=== PATIENT | female | born 1945 | race Caucasian/White ===

== ENCOUNTER 2023-03-10 22:07 | Inpatient (IN) | payer MEDICARE, BC ==
[2023-03-11 01:13] LABS: BASOPHILS ABSOLUTE AUTO 0.05 K/uL (0.00-0.10); BASOPHILS PERCENT AUTO 0.4 % (0.1-1.3); EOSINOPHILS ABSOLUTE AUTO 0.05 K/uL (0.00-0.40); EOSINOPHILS PERCENT AUTO 0.4 % (0.0-5.4); HEMATOCRIT 34.3 % (34.3-46.0); HEMOGLOBIN 11.3 g/dL (11.2-15.5); IMMATURE GRAN ABSOLUTE AUTO 0.12 K/uL (0.00-0.23); IMMATURE GRAN PERCENT AUTO 0.9 % (0.0-0.7); LYMPHOCYTES ABSOLUTE AUTO 1.22 K/uL (0.8-3.3); LYMPHOCYTES PERCENT AUTO 8.7 % (11.4-47.7); MEAN CORPUSCULAR HGB CONC 32.9 g/dL (31.6-35.5); MEAN CORPUSCULAR VOLUME 88.2 fL (81.4-99.0); MONOCYTES PERCENT AUTO 10.7 % (3.3-12.6); NEUTROPHILS ABSOLUTE AUTO 11.11 K/uL (1.0-7.6); NEUTROPHILS PERCENT AUTO 78.9 % (40.0-78.1); PLATELET COUNT,PLT 216 K/uL (130-375); RED BLOOD CELL COUNT 3.89 M/uL (3.77-5.24); WHITE BLOOD CELL COUNT,WBC 14.1 K/uL (3.2-11.0)
[2023-03-11 01:30] LABS: A/G RATIO 0.7 (1.2-2.2); ALANINE AMINOTRANSFERASE,ALT 32 U/L (12-78); ALBUMIN 2.7 g/dL (3.4-5.0); ALKALINE PHOSPHATASE 116 U/L (46-116); ASPARTATE AMNIOTRANSFERASE,AST 32 U/L (15-37); BILIRUBIN TOTAL 0.4 mg/dL (0.2-1.0); BLOOD UREA NITROGEN,BUN 22 mg/dL (7-18); CALCIUM 8.7 mg/dL (8.5-10.1); CARBON DIOXIDE,CO2 30 mmol/L (21-32); CHLORIDE,CL 98 mmol/L (100-108); CREATININE 1.5 mg/dL (0.6-1.0); EST CRCL DRUG DOSING (CG) 25.23 mL/min; ESTIMATED GFR 36 mL/min (>60); GLUCOSE RANDOM 139 mg/dL (74-106); POTASSIUM,K 3.5 mmol/L (3.6-5.2); PROTEIN TOTAL,TP 6.5 g/dL (6.4-8.2); SODIUM,NA 134 mmol/L (140-148)
[2023-03-11 01:32] LABS: ANION GAP 9.5 mmol/L (5.0-14.0)
[2023-03-11 02:04] LABS: APPEARANCE,URINE SLIGHTLY CLOUDY (CLEAR); BILIRUBIN,URINE NEGATIVE (NEGATIVE); COLOR,URINE YELLOW (YELLOW); GLUCOSE,URINE NEGATIVE (NEGATIVE); KETONES,URINE NEGATIVE (NEGATIVE); LEUKOCYTE ESTERASE,URINE LARGE (NEGATIVE); NITRITE,URINE POSITIVE (NEGATIVE); OCCULT BLOOD,URINE MODERATE (NEGATIVE); PROTEIN,URINE 30 mg/dL (NEGATIVE); RBC,URINE 0-5 (0-5); UROBILINOGEN,URINE 0.2 EU/dL (0.2-1.0)
[2023-03-11 02:05] LABS: AMORPHOUS SEDIMENT,URINE NOT SEEN; BACTERIA,URINE MANY; EPITHELIAL CELLS,URINE RARE; MUCUS,URINE NOT SEEN; WBC,URINE >100 (0-5)
[2023-03-11] MEDS ORDERED: Sodium Chloride 0.9% 1,000 ML IV SCH ×2 (02:15→03:00)
[2023-03-11 02:30] LABS: LACTIC ACID 0.7 mmol/L (0.4-2.0)
[2023-03-11] MEDS ORDERED: cefTRIAXone 2 GM in Sodium Chloride 0.9% 50 ML IV ONE (02:48)
[2023-03-11] MEDS ORDERED: Morphine 2 MG/ML SYRINGE IVPUSH PRN (04:56)
[2023-03-11] MEDS ORDERED: Bisacodyl 5 MG Tab PO PRN (04:56)
[2023-03-11] MEDS ORDERED: Pantoprazole 40 MG Vial IVPUSH SCH (04:56)
[2023-03-11] MEDS ORDERED: LORazepam 2 MG/ML SDV IV PRN (04:56)
[2023-03-11] MEDS ORDERED: Albuterol 0.083% 2.5 MG/3 ML Neb Soln NEB PRN (04:56)
[2023-03-11] MEDS ORDERED: Ondansetron 4 MG Tab.DIS PO PRN (04:56)
[2023-03-11] MEDS ORDERED: Docusate Sodium 100 MG Cap PO PRN (04:56)
[2023-03-11] MEDS: Sodium Chloride 0.9% 1,000 ML IV SCH ×2 (05:29→15:57)
[2023-03-11] MEDS: Pantoprazole 40 MG Vial IVPUSH SCH (08:47)
[2023-03-11] MEDS: Enoxaparin 30 MG/0.3 ML Syringe SUBCUT SCH (08:47)
[2023-03-11] MEDS: oxyCODONE 5 MG Tab PO PRN ×2 (11:03→19:32)
[2023-03-11] MEDS: Acetaminophen 325 MG Tab PO PRN (19:32)
[2023-03-12] MEDS: Sodium Chloride 0.9% 1,000 ML IV SCH ×2 (00:29→08:40)
[2023-03-12 04:52] LABS: HEMATOCRIT 30.2 % (34.3-46.0); HEMOGLOBIN 9.9 g/dL (11.2-15.5); MEAN CORPUSCULAR HEMOGLOBIN 29.3 pg (31.6-35.5); MEAN CORPUSCULAR HGB CONC 32.8 g/dL (31.6-35.5); MEAN CORPUSCULAR VOLUME 89.3 fL (81.4-99.0); RED BLOOD CELL COUNT 3.38 M/uL (3.77-5.24); WHITE BLOOD CELL COUNT,WBC 7.9 K/uL (3.2-11.0)
[2023-03-12 05:01] LABS: CALCIUM 7.9 mg/dL (8.5-10.1); CREATININE 1.2 mg/dL (0.6-1.0); EST CRCL DRUG DOSING (CG) 31.54 mL/min; POTASSIUM,K 3.6 mmol/L (3.6-5.2)
[2023-03-12 05:16] LABS: ANION GAP 10.6 mmol/L (5.0-14.0)
[2023-03-12] MEDS: oxyCODONE 5 MG Tab PO PRN ×4 (07:32→20:30)
[2023-03-12] MEDS: Pantoprazole 40 MG Vial IVPUSH SCH (07:35)
[2023-03-12] MEDS ORDERED: Potassium Chloride 20 MEQ Tab.ER PO ONE (08:08)
[2023-03-12] MEDS: Enoxaparin 30 MG/0.3 ML Syringe SUBCUT SCH (08:42)
[2023-03-12] MEDS: Acetaminophen 325 MG Tab PO PRN (20:31)
[2023-03-13] MEDS ORDERED: Ciprofloxacin 500 MG Tab PO SCH (09:00)
[2023-03-13] MEDS: Pantoprazole 40 MG Vial IVPUSH SCH (09:23)
[2023-03-13] MEDS: oxyCODONE 5 MG Tab PO PRN (09:24)
[2023-03-13] MEDS: Acetaminophen 325 MG Tab PO PRN (09:25)
[2023-03-13] MEDS: Enoxaparin 30 MG/0.3 ML Syringe SUBCUT SCH (09:26)
[2023-03-14] MEDS ORDERED: Pantoprazole 40 MG Tab.CR PO SCH (07:30)
== END 2023-03-13 14:30 | disposition home or self-care (01) | DRG 689 ==
LOC: JP.ED 22:07 → JP.MS 03-11 03:48 → JP.2SS 03-11 03:48 → UNDOADMIN 03-11 03:48
PROVIDERS: ADMIT Internal Medicine; ATTEND Internal Medicine
PROC: 8E0ZXY6 Isolation (ICD-10-PCS; principal; 2023-03-11)
DX: N30.00 Acute cystitis without hematuria (principal); U07.1 COVID-19; N20.1 Calculus of ureter; N20.0 Calculus of kidney; E86.0 Dehydration; B96.20 Unspecified Escherichia coli [E. coli] as the cause of diseases classified elsewhere; Z96.0 Presence of urogenital implants; Z88.0 Allergy status to penicillin; Z88.8 Allergy status to other drugs, medicaments and biological substances; Z87.442 Personal history of urinary calculi; J44.9 Chronic obstructive pulmonary disease, unspecified; F17.210 Nicotine dependence, cigarettes, uncomplicated
CPT/HCPCS: 36415; 71045 ×2; 74176; 80053; 81001; 83605; 84443; 85025; 86140; 87086; 87088; 87186; 96365; 99285; J0696; J3490; J7030; 80048; 85027; 99222; 99232; 99238; 99283; A9270-GY; C9113; J0713; J1650; J2060; Q0162; U0002